=== PATIENT | female | born 2000 | race Caucasian/White ===

== ENCOUNTER 2022-02-04 11:07 | Emergency (ER) | payer MEDICAID ==
[~2022-02-04] VITALS: Ht 172.7 cm; Wt 74.1 kg
[2022-02-04 11:14] VITALS: BP 91/59
[2022-02-04] MEDS ORDERED: dexamethasone sod phosphate 10mg/ml inj PO STA (11:24)
[2022-02-04] MEDS ORDERED: AMOX-117 PO (11:51)
== END 2022-02-04 12:19 | disposition home or self-care (01) ==
LOC: ER 11:08
DX: J02.9 Acute pharyngitis, unspecified (principal); Z98.890 Other specified postprocedural states
CPT/HCPCS: 87081; 87880; 99283; J1100